=== PATIENT | male | born 1960 ===

== ENCOUNTER → 2017-10-09 | Outpatient (CLI) | payer OTHER ==
--- NOTE | 2017-10-09 12:56 | CT ---
EXAMINATION TYPE: CT chest wo con DATE OF EXAM: 10/09/2017 COMPARISON: None HISTORY: asbestos exposure, COPD CT DLP: 149 mGycm, Automated exposure control for dose reduction was used. CONTRAST: None TECHNIQUE: Axial images were obtained at 1 mm thick sections at 10 mm intervals. This will limit po rtions of the examination which may not be visualized within the [id number]. Images were obtained in the prone and supine views. FINDINGS: Portion of the thyroid visualized is normal. No suspicious lung nodules or focal infiltrat es are present. Some minimal scarring at the apices may be present. Mild paraseptal emphysematous darcy nges may be present at the periphery of the lungs. Early pulmonary fibrosis could be considered. Cons ider monitoring. No enlarged mediastinal or hilar adenopathy is evident. There are some scattered small lymph nodes present. The ascending aorta diameter at the level of the main pulmonary artery is 3.4 cm. The main pulmonary artery diameter at the bifurcation is 2.4 cm. There is some mild coronary artery calcificat ion present. Limited CT sections are obtained through the upper abdomen. Abdomen is essentially unremarkable. IMPRESSIONS: 1. Suspicion of early paraseptal emphysematous changes versus pulmonary fibrosis. More typical findin gs of asbestosis are not identified. Consider monitoring.
== END | disposition home or self-care (01) ==
LOC: RADCTMAIN 07:51
PROVIDERS: ATTEND Internal Medicine Critical Care Medicine
DX: R06.02 Shortness of breath (principal); J44.9 Chronic obstructive pulmonary disease, unspecified; Z77.090 Contact with and (suspected) exposure to asbestos
CPT/HCPCS: 71250

== ENCOUNTER → 2017-11-29 | Outpatient (CLI) | payer OTHER ==
--- NOTE | 2017-11-30 00:41 | MR ---
EXAMINATION TYPE: MR cervical spine wo/w con DATE OF EXAM: 11/29/2017 COMPARISON: None HISTORY: Neck/Arm numbness, Hx of Cervical Fusion TECHNIQUE: Multiplanar, multisequence images of the cervical spine were acquired utilizing 7.5 mL intravenous Ga davist gadolinium contrast. Diffusion weighted imaging was performed. The cervical vertebra have normal alignment. There is metal artifact with decreased signal due to humera te and screws fusing anteriorly the cervical spine from C5 to C7. Cervical spinal cord shows normal s ignal pattern with no edema. Brainstem appears intact. There is no compression fracture. On the T2 im ages there is increased signal in the C4 vertebral body consistent with some edema. There are small p osterior disc bulge at C4-5. The spinal canal measures 8 mm at C4-5. I see no significant spinal sten osis. There is right-sided uncovertebral spurring at C4-5 encroaching on the neural foramen and later al recess. The posterior elements appear intact. I see no fracture line. IMPRESSION: Anterior fusion surgery. Small posterior disc herniation at C4-5 with also uncovertebral spurring on the right side impinging on the neural foramen. No significant spinal stenosis. No fracture seen. Mil d edema in the C4 vertebral body could relate to stress phenomenon.
== END | disposition home or self-care (01) ==
LOC: RADMRIMAIN 16:31
PROVIDERS: ATTEND Orthopaedic Surgery Orthopaedic Surgery of the Spine
DX: M50.221 Other cervical disc displacement at C4-C5 level (principal); Z98.1 Arthrodesis status
CPT/HCPCS: 72156; A9585